=== PATIENT | female | born 1960 | race Two or more races ===

== ENCOUNTER 2019-02-17 12:51 | Inpatient (IN) | payer OTHER ==
[~2019-02-17] VITALS: Ht 157.5 cm; Wt 72.6 kg
--- NOTE | 2019-02-17 13:30 | NUR ---
PATIENT CAME IN TO THE ER C/O FEELING DEPRESSED WITH SI, THINKING OF CUTTING HER WRIST, ADMITTED AT [facility] Feb.08- . ON ROOM AIR BREATHING EVENLY AND UNLABORED, CONNECTED TO THE MONITOR AND PULSE OX. KEPT COMFORTABLE, WILL CONTINUE TO MONITOR ACCORDINGLY. SITTER AT BEDSIDE AND DAUGHTER.
[2019-02-17 14:06] LABS: BASOPHILS % (AUTO) 0.3 % (0.0-2.0); EOSINOPHILS % (AUTO) 0.2 % (0.0-6.0); HEMATOCRIT 41 % (33-45); HEMOGLOBIN 13.5 g/dL (11.5-14.8); LYMPHOCYTES # (AUTO) 1.1 /CMM (0.8-4.8); LYMPHOCYTES % (AUTO) 15.8 % (20.0-44.0); MEAN CORPUSCULAR HGB CONC 33 g/dl (31.0-36.0); MEAN CORPUSCULAR VOLUME 87 fL (82-100); MONOCYTES # (AUTO) 0.3 /CMM (0.1-1.30); MONOCYTES % (AUTO) 4.9 % (2.0-12.0); NEUTROPHILS # (AUTO) 5.6 /CMM (1.8-8.9); NEUTROPHILS % (AUTO) 78.8 % (43.0-81.0); PLATELET COUNT (AUTO) 311 /CMM (150-450); RED BLOOD CELL COUNT(AUTO) 4.64 MIL/uL (4.0-5.2); WHITE BLOOD COUNT (AUTO) 7.1 K/uL (4.3-11.0)
[2019-02-17 14:13] LABS: APPEARANCE,URINE Clear (CLEAR); BILIRUBIN,URINE Negative (NEGATIVE); BLOOD, URINE Negative Ery/uL (NEGATIVE); COLOR,URINE Yellow (YELLOW); KETONES,URINE 15 (NEGATIVE); LEUKOCYTE ESTERASE ,URINE Negative (NEGATIVE); NITRITE, URINE Negative (NEGATIVE); PH,URINE 6.5 (5.0-8.0); PROTEIN,URINE Negative (NEGATIVE); UGLUCOSE Negative (NEGATIVE); UROBILINOGEN,URINE 0.2 EU/dL (0.2)
[2019-02-17 14:14] LABS: CALCIUM, SERUM 9.5 mg/dL (8.5-10.1); CARBON DIOXIDE 28 mmol/L (21-32); CHLORIDE 105 mmol/L (98-107); CREATININE 0.8 mg/dL (0.6-1.3); GLUCOSE 101 mg/dL (74-106); POTASSIUM 4.3 mmol/L (3.5-5.1); SODIUM SERUM 141 mmol/L (136-145); UREA NITROGEN, BLOOD 10 mg/dL (7-18)
[2019-02-17 14:20] LABS: ACETAMINOPHEN 0 ug/ml (10-30); ALANINE AMINOTRANSFERASE 24 U/L (12-78); ALBUMIN 3.8 g/dL (3.4-5.0); ALCOHOL, BLOOD < 3 mg/dL (0-0); ALKALINE PHOSPHATASE 116 U/L (46-116); ASPARTATE AMINOTRANSFERASE 19 U/L (15-37); BILIRUBIN,DIRECT 0.1 mg/dL (0.0-0.2); BILIRUBIN,TOTAL 0.3 mg/dL (0.2-1.0); SALICYLATE 1.1 mg/dL (2.8-20.0); TOTAL PROTEIN, SERUM 7.4 g/dL (6.4-8.2)
--- NOTE | 2019-02-17 14:54 | NUR ---
ALYCIA PORRAS [phone] ETA 60 MINS
--- NOTE | 2019-02-17 15:00 | NUR ---
Patrice kong in [facility] - 02/17/19 at 1500 by EARNEST Ariadna Akers ([facility]) [phone]
--- NOTE | 2019-02-17 16:43 | NUR ---
PATIENT GOING TO ROOM 212B
--- NOTE | 2019-02-17 16:57 | NUR ---
report given to Nancy TERRELL for marla.
--- NOTE | 2019-02-17 17:43 | NUR ---
wheeled patient via wheelchair accompanied by EMT in no distress, RN ta bedside to assume care.
[2019-02-17] MEDS ORDERED: MAGNESIUM HYDROXIDE 30 ML UDC PO PRN (18:30)
[2019-02-17] MEDS ORDERED: BLOOD SUGAR DIAGNOSTIC 1 EACH STRIP IN ONE (18:30)
[2019-02-17] MEDS ORDERED: MAG HYDROX/AL HYDROX/SIMETH 30 ML UDC PO PRN (18:30)
[2019-02-17] MEDS ORDERED: ACETAMINOPHEN 325 MG TABLET PO PRN (18:30)
[2019-02-17] MEDS ORDERED: clonazePAM 0.5 MG TABLET PO PRN ×2 (18:30→20:00)
--- NOTE | 2019-02-17 18:44 | NUR ---
Pt. arrived in the via a wheel chair and wheeled by staff. Dr. Bernal made aware of the admission and gave orders. V/S taken, weight taken and contraband done. Will endorse to incoming nurse for the completion of the admission.
[2019-02-17 19:03] VITALS: BP 121/86
[2019-02-17 20:54] VITALS: BP 142/88
[2019-02-17] MEDS: TEMAZEPAM 7.5 MG CAPSULE PO PRN (21:35)
--- NOTE | 2019-02-17 22:30 | NUR ---
RN NOTES : PLACED CALL PT. FAMILY MEMBER JEFFERY KEYES ABOUT ADMISSION # [phone] .
--- NOTE | 2019-02-17 23:25 | NUR ---
ADMISSION NOTES: ADMITTED THIS 59Y/O FEMALE PATIENT ADMIT FROM [facility] ,ER / INTIALLY FROM HOME, ADMITTED TO [facility] ON 5150 HOLD, PER HOLD DANGER TO SELF, DEPRESSED, SUICIDAL IDEATION AND PLAN TO OVER DOSE OR TO CUT MY WRIST, UPON FACE TO FACE ASSESSMENT PATIENT IS A&O X3 , PER PT. I AM FEELING DEPRESSED , BUT NO SUICIDAL IDEATION AND DENIES SI /HI AT THIS TIME, PT. IS POOR HISTORIAN, POOR INSIGHT ,POOR JUDGEMENT , PT. REFUSED TO SIGNS ADMISSION CONSENT PAPERS , DUE TO MENTAL STATUS DEPRESSED, PT. REFUSED INTITAALY BLOOD SUGAR CHECK , ENCOURAGED, EXPLAINED RISKS AND BENEFITS STILL REFUSED, PER PT. I DONT WANTS CHECK, I AM NOT DIABETIC , BOTH MD AWARE AND NOTIFIED OF THE ADMISSION, BELONGINGS CONTRABAND WERE DONE , NURSING ASSESSMENT DONE ,PT. RIGHTS DISCUSS BY NATURAL GAS ENGINEER , PROVIDE THE PT. WITH HANDBOOK, AND MEDICATIONS GUIDE, ENVIRONMENTAL SAFETY CHECK DONE, ENCOURAGED PT. VERBALIZED ANY FEELING CONCERN TO STAFF, ORIENT TO UNIT POLICY, NO ACUTE DISTRESS NOTED,VITAL SIGNS WNL ,DENIES ANY PAIN AT THIS TIME,WILL CONTINUE TO MONITOR FOR Q15 SAFETY AND BEHAVIOR.
[2019-02-18] MEDS ORDERED: ESCI10TA PO (07:16)
[2019-02-18] MEDS ORDERED: TRAZ-252 PO (07:16)
[2019-02-18] MEDS ORDERED: AMIT100T2 PO (07:16)
[2019-02-18 07:31] LABS: ALBUMIN 3.8 g/dL (3.4-5.0); BILIRUBIN,TOTAL 0.4 mg/dL (0.2-1.0); CREATININE 0.7 mg/dL (0.6-1.3); POTASSIUM 3.9 mmol/L (3.5-5.1); TOTAL PROTEIN, SERUM 7.4 g/dL (6.4-8.2)
[2019-02-18 07:56] LABS: THYROID STIMULATING HORMONE 2.565 uIU/mL (0.358-3.74)
[2019-02-18 08:00] VITALS: BP 138/85
[2019-02-18] MEDS: ESCITALOPRAM OXALATE (10 MG) 10 MG TABLET PO SCH (12:40)
[2019-02-18 16:00] VITALS: BP 101/69
[2019-02-18 20:00] VITALS: BP 128/85
[2019-02-18] MEDS: TRAZODONE 50 MG TABLET PO SCH (21:23)
[2019-02-19 08:00] VITALS: BP 141/61
[2019-02-19] MEDS: ESCITALOPRAM OXALATE (10 MG) 10 MG TABLET PO SCH (09:05)
--- NOTE | 2019-02-19 10:13 | NUR ---
UR NOTE: AIXA completed concurrent review with Nadine, family preservation caseworker at [facility] [phone]. Per Nadine, she will review clinical with supervision and call back with additional days of approval.
--- NOTE | 2019-02-19 12:27 | NUR ---
FAMILY CONTACT: SW contacted pts daughter Carina [phone] who states it is safe for pt to return to her sons house and states her son will also assist with transportation.
--- NOTE | 2019-02-19 12:29 | NUR ---
INITIAL DISCHARGE PLAN: Pt wishes to return to her sons house [address] [facility] [address] . AIXA contacted pts daughter Carina [phone] who states it is safe for pt to return to her sons house and states her son will also assist with transportation. AIXA will help from a safe and proper discharge in collaboration with .
--- NOTE | 2019-02-19 12:55 | NUR ---
UR NOTE: AIXA received a call from Nadine, rifle case repairer at [facility] [phone] stating pt has been authorized 2 additional days 02/20/19 and 02/21/19. Per Nadine she will be calling AIXA on 02/21/19 for concurrent review.
[2019-02-19 16:00] VITALS: BP 116/76
[2019-02-19 20:34] VITALS: BP 106/66
[2019-02-19] MEDS: TRAZODONE 50 MG TABLET PO SCH (21:13)
[2019-02-19] MEDS: TEMAZEPAM 7.5 MG CAPSULE PO PRN ×2 (23:17)
[2019-02-20 08:00] VITALS: BP 109/70
[2019-02-20] MEDS: ESCITALOPRAM OXALATE (10 MG) 10 MG TABLET PO SCH (08:19)
--- NOTE | 2019-02-20 14:11 | NUR ---
UR NOTE: AIXA contacted Nadine oil field caser at [facility] [phone] and left a voicemail requesting aftercare appointments for pt.
--- NOTE | 2019-02-20 14:13 | NUR ---
FAMILY CONTACT: AIXA contacted pts son Stanton [phone] to inform him pt is being discharged tomorrow and also to coordinate transportation, son stated he will be picking pt up between [phone].
--- NOTE | 2019-02-20 15:00 | NUR ---
GROUP NOTE: SW encouraged pt to attend group on this present day discussing "suicidal urges." Pt states that she feels much better and that she is ready to go home. SW discussed pts isolation and withdrawal and Pt states that she does not like going out of her room due to the behavior of other pts and states that if she interacts with them she will turn crazy just like the rest of the pts. Pt denied suicidal ideation and SW informed her that MD has placed discharge order for tomorrow 02/21/19. Pts mood is euthymic with congruent affect.
[2019-02-20 16:00] VITALS: BP 109/79
--- NOTE | 2019-02-20 16:43 | NUR ---
RN-CO: Patient is calm and cooperative, denied suicidal and homicidal ideation, denied auditory and visual hallucination. She was seen and examined today by Dr Ortiz.
[2019-02-20 20:27] VITALS: BP 113/65
[2019-02-20] MEDS: TRAZODONE 50 MG TABLET PO SCH (21:15)
[2019-02-21 08:00] VITALS: BP 118/76
--- NOTE | 2019-02-21 08:49 | NUR ---
RN-CO: DR PHAM gave an order to discharge patient today. Patient remains calm and cooperative. Denied suicidal and homicidal ideation. Denied auditory and visual hallucinations. Affect is appropriate.
[2019-02-21] MEDS: ESCITALOPRAM OXALATE (10 MG) 10 MG TABLET PO SCH (08:55)
--- NOTE | 2019-02-21 10:38 | NUR ---
DISCHARGE NOTE: Pt will be discharged between 4:30pm and 5:00pm via private vehicle to her sons house [address] [place] [address] . Pts son Stanton [phone] will cigar packer and picker pt and transport home. Pts mood is euthymic with congruent affect. Pt denied visual/auditory hallucinations and denied suicidal/homicidal ideation. Pt will follow up with Psychiatrist: Dr. Clyde Lozoya Address: [place] [address] on Tuesday02/23/19 at 10:00am, SW faxed clinicals to [phone]. Pt will also follow up with Spares Scheduler: Dr. Ifeoma Reynolds Address: [place] [address] . The multidisciplinary exit care form was done, printed, signed, and given to the patient.
--- NOTE | 2019-02-21 14:49 | NUR ---
RN-CO: Patient was seen by Dr Ortiz.
[2019-02-21 16:00] VITALS: BP 121/83
--- NOTE | 2019-02-21 17:07 | NUR ---
[facility] RN NOTE: PATIENT IS A 59 YEAR OLD FEMALE DISCHARGED TO HOME. PATIENT IS IN STABLE CONDITION. VSS. NO ACUTE DISTRESS NOTED. NO COMPLAINTS. COMPLIANT WITH MEDICATION MANAGEMENT. COOPERATIVE WITH PLAN OF CARE. PSYCHIATRIC TREATMENT PLANS MET. MEDICAL TREATMENT PLANS DEFERRED FOR CONTINUAL MONITORING. DENIES SI/HI VAH AT THE TIME OF DISCHARGE. SKIN CHECK DONE AND SKIN IS INTACT. EDUCATED PATIENT ABOUT AFTERCARE WITH COPY PROVIDED. RETURNED PERSONAL BELONGINGS TO PATIENT. MEDICATIONS RECONCILED WITH DR PHAM AND LAURA GREEN BUILDING MATERIALS DESIGNER. DISCHARGE PAPERWORK SIGNED. FOR FOLLOW UP WITH PSYCHIATRIST AND STEEL POST INSTALLER SUPERVISOR WITHIN 1 WEEK. PATIENT LEFT THE [facility] VIA PRIVATE CARE ACCOMPANIED BY SON, KARI.
== END 2019-02-21 17:00 | disposition home or self-care (01) | DRG 885 ==
LOC: ER 12:58 → GPS 17:38
PROVIDERS: ADMIT Psychiatry & Neurology Psychiatry; ATTEND Student in an Organized Health Care Education/Training Program
DX: F33.2 Major depressive disorder, recurrent severe without psychotic features (principal); R45.851 Suicidal ideations; I10 Essential (primary) hypertension; Z59.0 Homelessness; F41.9 Anxiety disorder, unspecified; G47.00 Insomnia, unspecified
CPT/HCPCS: 36415; 80048-TC; 80053-TC; 80061-TC; 80076-TC; 80305; 81000-TC; 84443-TC; 85025-TC; 87081-TC; G0480